=== PATIENT | male | born 1965 | race Caucasian/White ===

== ENCOUNTER → 2024-03-25 09:54 | Outpatient (REF) | payer BC, SELFPAY | LOC: HWRAD 09:54 | PROVIDERS: ATTENDING PHYSICIAN Family Medicine | DX: Z87.891 Personal history of nicotine dependence (principal) | CPT/HCPCS: 71271 ==

== ENCOUNTER 2024-09-18 06:32 | Day surgery (SDC) | payer BC, SELFPAY | END 2024-09-18 12:13 | disposition home or self-care (01) | LOC: GI 06:32 | PROVIDERS: ATTENDING PHYSICIAN Internal Medicine Gastroenterology | DX: Z12.11 Encounter for screening for malignant neoplasm of colon (principal); K57.30 Diverticulosis of large intestine without perforation or abscess without bleeding; K63.5 Polyp of colon; K62.1 Rectal polyp; Z98.890 Other specified postprocedural states | CPT/HCPCS: 45385; 45380; 88305 ==